=== PATIENT | male | born 1960 | race Caucasian/White ===

== ENCOUNTER 2022-01-28 08:54 | Outpatient (CLI) | payer BC, SELFPAY ==
--- NOTE | 2022-01-28 09:15 | MR_ITS ---
[address] [address] Phone:?[phone] Fax:?[phone] Referring Physician Information: Ellis Finch M.D. [id number] [facility] [address] Phone:?[phone] Fax:?[phone] Patient:?Jaspreet Harris D.O.B:?1960 Sex:?Male Phone:?[phone] [facility] MRN:?[id number] Exam Date:?01/28/2022 ? EXAM: MRI of the RIGHT KNEE, without contrast CLINICAL: Male, 61 years old, with lateral right knee pain. INDICATION: Evaluate for lateral meniscus tear and/or osteoarthritis. PRIOR SURGERY: Reported history of arthroscopic surgery in 1996. PLAIN FILMS: None available. COMPARISONS: 09/20/2012 MRI of the right knee. TECHNICAL: Using a 1.5 Judy MR scanner and a localizing surface coil: 3.0 mm?sagittals: PD, PDFS 3.0 mm?coronals: PD, STIR 3.0 mm?axials: PD, T2FS SEDATION: None. CONTRAST: None. IMPRESSION: 1. Expected residua of partial meniscectomy of the posterior one-half of the medial meniscus with somewhat more prominent irregularity which could potentially represent an element of recurrent tear of the small remaining peripheral remnant, but also associated with peripheral extrusion documenting associated decreased meniscal load-sharing function. 2. Minimal chondral thinning of the medial compartment without more prominent chondromalacia/defect or subjacent marrow edema or subchondral insufficiency fracture. 3. Ongoing reactive changes of moderate lateral patellofemoral chondromalacia/osteoarthritis with grade III-IV chondromalacia/defect and mild subjacent reactive marrow edema. 4. Small less than 1 cm incomplete thickness longitudinal superior surface irregularity/tear near periphery of the lateral meniscus anterior horn without larger lateral meniscus tear. 5. No lateral compartment chondromalacia/osteoarthritis. 6. Large knee effusion. FINDINGS: Knee joint: Effusion: Large right knee effusion. Popliteal cyst: None. Loose bodies: None. Subcutaneous and extra-articular soft tissues: Mild nonspecific subcutaneous soft tissue swelling/edema overlying the anteromedial knee. Ligaments: ACL: Intact ACL anteromedial and posterolateral bundles, without sprain or tear. PCL: Intact PCL, without acute or chronic injury. MCL: Intact MCL superficial and deep layers, without injury. FCL: Intact FCL, without injury. Posterolateral corner: No posterolateral corner soft tissue injury. Popliteus, biceps femoris, iliotibial band, popliteofibular ligament and lateral gastrocnemius are intact. Posteromedial corner: No posteromedial corner soft tissue injury. Semimembranosus, pes anserine tendons and posterior oblique ligament are without injury, tendinopathy or bursitis. Extensor mechanism: Patellar tendon: Intact, without tendinopathy. Quadriceps tendon: Intact, without tendinopathy. Retinacula: Medial and lateral retinacula are intact. Fat pads: Unremarkable infrapatellar Hoffa's, quadriceps and prefemoral fat pads. Medial compartment: Medial meniscus: Posterior one-half of the medial meniscus is abnormally small which, without fragment displacement, and in light of history of prior surgery, is presumed to represent residua of partial medial meniscectomy which may be correlated with surgical history (sagittal images 27-18; coronal images 24-16). There is rather prominent irregularity of the small remaining peripheral remnant of its posterior horn, difficult to exclude the possibility of an element of recurrent irregularity/tear (sagittal images 19-24). 5 mm peripheral extrusion of the posterior aspect remaining anterior one-half of the medial meniscus documents associated decreased meniscal load-sharing function (coronal PD series 7, image 16). Medial femoral condyle: No chondromalacia or osteochondral abnormality. Medial tibial plateau: Mild chondral thinning of the medial rim of the medial tibial plateau is not associated with subjacent reactive marrow edema at this time. Lateral compartment: Lateral meniscus: Short, less than 1 cm segment of longitudinal superior surface irregularity/tear near periphery of the lateral meniscus anterior horn without larger tear. No fragment displacement. No parameniscal cyst. No posterior root disruption or peripheral meniscal extrusion. Lateral femoral condyle: No chondromalacia or osteochondral abnormality. Lateral tibial plateau: No chondromalacia or osteochondral abnormality. Patellofemoral joint: Patella: Approximately 30 x 25 mm grade III-IV chondromalacia/thinning and irregularity of the lateral facet into adjacent median ridge of the patella is accompanied by mild subjacent reactive marrow edema (sagittal PD & PDFS series 5 & 6, images 14-7; axial PD & PDFS series 3 & 4, images 7-14). Trochlea: Approximately 15 x 8 mm grade III-IV chondral defect of the superolateral femoral trochlea, with slight marginal osteophyte formation and mild subjacent reactive marrow edema (axial PDFS & PD series 4 & 3, images 13- 17; sagittal PDFS & PD series 6 & 5, images 12-8). Proximal tibiofibular joint: Unremarkable, without evidence of ligament sprain injury, joint effusion or adjacent marrow edema. Bones: No stress/occult fractures or other marrow edema/pathology. Neurovascular: Popliteal artery: No demonstrable popliteal artery entrapment or predisposing gastrocnemius variant. No aneurysm or pseudoaneurysm. Popliteal vein: No fusiform or saccular venous aneurysm. Anterior tibial artery: No aberrant high-origin anterior tibial artery. Tibial nerve: No entrapment or distal edema/swelling at the soleal sling. Popliteal nerve: No intrinsic or extrinsic mass or edema/swelling. Common peroneal nerve: Normal to fibular head and neck level included. F Electronically signed on 01/29/2022 3:51:00 PM by Jose Abraham M.D.
== END 2022-01-28 08:55 | disposition home or self-care (01) ==
LOC: MRI 08:55
PROVIDERS: PCP Family Medicine; Visit Provider Orthopaedic Surgery
DX: M25.561 Pain in right knee (principal); M17.11 Unilateral primary osteoarthritis, right knee; M23.221 Derangement of posterior horn of medial meniscus due to old tear or injury, right knee; M94.251 Chondromalacia, right hip; S83.281A Other tear of lateral meniscus, current injury, right knee, initial encounter; M25.461 Effusion, right knee
CPT/HCPCS: 73721

== ENCOUNTER 2022-05-23 06:16 | Day surgery (SDC) | payer BC, SELFPAY ==
[2022-05-23] VITALS (10 sets, daily range): BP systolic 90–123; BP diastolic 56–84; PULSE 47–83; RESP 14–18; TEMP 35.6–36.5; O2SAT 95–100; BMI 29.2
[2022-05-23] MEDS: LACTATED RINGERS 1000 ML 1,000 ML 100 ML IV (06:30)
[2022-05-23] MEDS: SODIUM CHLORIDE 0.9 % (FLUSH) 10 ML SYRINGE IVF (07:01)
[2022-05-23] MEDS: CEFAZOLIN 2 GM INJ IVP (07:45)
[2022-05-23] MEDS: BUPIVACAINE 0.25% 30 ML INJECTION (08:30)
--- NOTE | 2022-05-23 08:33 | PM.ORPRC ---
Procedure Note Date of procedure: 05/23/22 Procedure: SURGEON: Ellis Finch MD CLINICAL LABORATORY SCIENCE PROFESSOR: ZULEIKA Veronica PREOPERATIVE DIAGNOSIS: Right knee medial and lateral meniscus tear, patellofemoral joint osteoarthritis POSTOPERATIVE DIAGNOSIS: Right knee medial and lateral meniscus tear, patellofemoral joint osteoarthritis NAME OF OPERATION: Right knee arthroscopic partial medial and lateral meniscectomy, patellar chondroplasty ANESTHESIA: Spinal ESTIMATED BLOOD LOSS: 0 mL COMPLICATIONS: None SPECIMENS: None DRAINS: None PREOPERATIVE ANTIBIOTICS: Ancef 2 gram INDICATIONS: The patient is a 61-year-old with a history of right knee pain. MRI scan is consistent with a medial and lateral meniscus tearing. Despite appropriate nonoperative management, including activity modification, antiinflammatories, [id number] pain medication, bracing, physical therapy, and injections they continue to have pain and disability. Operative intervention was offered. The risks, benefits and expected outcomes were discussed in detail. These included but were not limited to: Infection, bleeding, injury to blood vessel or nerve, venous thromboembolism. All questions were answered to their satisfaction. PROCEDURE: Spinal anesthesia was administered. The patient was placed supine on the operating room table. The right lower extremity was prepped and draped in the usual sterile fashion. The limb was exsanguinated with the Jaspreet bandage. The pneumatic tourniquet was inflated to 300 mmHg. A standard anterolateral portal was established. The arthroscope was introduced. The working portal was established anteromedially. Diagnostic arthroscopy was performed with findings as follows: The suprapatellar pouch is normal. Articular surface on the patella shows a focal area of grade 4 change laterally, diffuse surrounding grade 3 change. Articular surface on the trochlea is normal. The medial gutter is normal. The medial compartment shows grade 1/2 change on both sides of the joint. The medial meniscus has been previously resected. The midbody, into the posterior horn has a parrot-beak tear, with an unstable flap. The notch shows the ACL to be intact. The lateral compartment shows normal articular cartilage on the lateral femoral condyle and lateral tibial plateau. The lateral meniscus has degenerative tearing of the leading edge of the anterior horn, at its tibial attachment. Additionally, there is degenerative fraying of the leading edge of the posterior horn at the posterior tibial attachment. The lateral gutter is normal. The midbody and posterior horn of the medial meniscus was debrided to a stable base using a combination of jaden through both portals. Unstable chondral flaps on the patella were debrided with the shaver through both portals, taken to a stable base. The anterior and posterior horn of the lateral meniscus was debrided with the shaver. This does not result in detachment from the tibia. Arthroscopic instruments were removed, the portal sites were Steri-Stripped closed, the knee was infiltrated with 30 mL of 0.25% Marcaine without epinephrine. A dry dressing was applied, the tourniquet was released. Sponge and needle counts were correct x 2. The patient tolerated the procedure well. There were no apparent complications. They were carefully transferred to the hospital bed and taken to the postanesthesia care unit in satisfactory condition. PLAN: The patient will be discharged to home. They may weightbear as tolerates. Range of motion will be unrestricted. They will follow up in the office next week for a wound check.
--- NOTE | 2022-05-23 08:44 | W.ANESCHARGE ---
Anesthesia Charges Start Date/Time Anesthesia Start Date: 05/23/22 Anesthesia Start Time: 07:42 Stop Date/Time Anesthesia Stop Date: 05/23/22 Anesthesia Stop Time: 08:40 Summary Emergency: No
--- NOTE | 2022-05-23 09:03 | W.ANESCHARGE ---
Anesthesia Charges Start Date/Time Anesthesia Start Date: 05/23/22 Anesthesia Start Time: 07:42 Stop Date/Time Anesthesia Stop Date: 05/23/22 Anesthesia Stop Time: 08:40 Summary Emergency: No
== END 2022-05-23 10:02 | disposition home or self-care (01) ==
PROVIDERS: PCP Family Medicine; Visit Provider Orthopaedic Surgery
PROC: (CPT 29870; principal; 2022-05-23 07:30)
DX: M23.251 Derangement of posterior horn of lateral meniscus due to old tear or injury, right knee (principal); M23.221 Derangement of posterior horn of medial meniscus due to old tear or injury, right knee; M23.241 Derangement of anterior horn of lateral meniscus due to old tear or injury, right knee; M17.11 Unilateral primary osteoarthritis, right knee
CPT/HCPCS: 29880; 01400; J0690; J1100; J1885; J2250; J2405; J2704; J3010; J3490; J7120